=== PATIENT | female | born 1955 | race African-American/Black ===

== ENCOUNTER 2018-06-18 17:44 | Emergency (ER) | payer BC, MEDICARE, OTHER ==
[~2018-06-18] VITALS: Ht 165.1 cm; Wt 81.8 kg
[2018-06-18] MEDS ORDERED: HYDRALAZINE 20MG/ML VIAL IV ONE (18:45)
[2018-06-18] MEDS ORDERED: KETOROLAC 30MG/ML VIAL IV ONE (18:45)
[2018-06-18 18:56] LABS: BASOPHILS % 0.8 % (0.0-2.0); HEMOGLOBIN. 12.7 g/dL (12.0-16.0); LYMPHOCYTES % 40.3 % (20.0-50.0); MEAN CORPUSCULAR HEMOGLOBIN 31.5 pg (28.0-32.0); MEAN CORPUSCULAR VOLUME 94.2 fL (81.0-99.0); MEAN PLATELET VOLUME 11.1 fl (7.4-10.4); MONOCYTES % 6.3 % (2.0-8.0); NEUTROPHILS % 52.6 % (40.0-76.0); PLATELET 158 x1000/uL (130-400); RED BLOOD CELL COUNT 4.04 mill/uL (4.2-5.4); RED CELL DISTRIBUTION WIDTH 14.1 % (11.6-14.6)
[2018-06-18 19:04] LABS: CHLORIDE 106 mEq/L (98-107)
[2018-06-18 19:09] LABS: D-DIMER 0.32 mg/L FEU (<0.50); PARTIAL THROMBOPLASTIN TIME 26.1 sec (23.4-31.0)
[2018-06-18] MEDS ORDERED: DEXTROSE 50% WATER 50ML SYRINGE IV ONE (19:15)
[2018-06-18] MEDS ORDERED: DIAZEPAM 5 MG/ML 2ML CPJ IV ONE (19:45)
[2018-06-18] MEDS ORDERED: ASPIRIN 325MG EC TABLET PO ONE (19:45)
[2018-06-18] MEDS ORDERED: LORAZEPAM 2MG/ML CPJ IV ONE (20:30)
[2018-06-18] MEDS ORDERED: GUAIFENESIN 200MG/10ML SUGAR FREE UDC PO PRN (21:00)
[2018-06-18] MEDS ORDERED: ONDANSETRON HCL 4MG/2ML INJ IV PRN (21:00)
[2018-06-18] MEDS ORDERED: LORAZEPAM 0.5MG TABLET PO PRN (21:00)
[2018-06-18] MEDS ORDERED: IPRATROPIUM/ALBUTEROL 0.5-3(2.5)MG/3ML NEB INH PRN (21:00)
[2018-06-18] MEDS ORDERED: ACETAMINOPHEN 325MG TABLET PO PRN (21:00)
[2018-06-18] MEDS ORDERED: FAMOTIDINE 20MG TABLET PO SCH (21:00)
[2018-06-18] MEDS ORDERED: CLONIDINE 0.1MG TABLET PO ONE (21:00)
[2018-06-18] MEDS ORDERED: METOPROLOL TARTRATE 25MG TABLET PO SCH (21:00)
[2018-06-18] MEDS ORDERED: DOCUSATE SODIUM 100MG CAPSULE PO PRN (21:00)
[2018-06-18] MEDS ORDERED: NITROGLYCERIN 0.4MG TABLET SL SL PRN (21:00)
[2018-06-18] MEDS ORDERED: KETOROLAC 15MG/ML VIAL IV PRN (21:00)
[2018-06-18] MEDS ORDERED: NA PHOS,M-B/NA PHOS,DI-BA ENEMA 118ML PR PRN (21:00)
[2018-06-18] MEDS ORDERED: ENOXAPARIN 40MG/0.4ML SYR SUBCUT SCH (21:00)
[2018-06-18] MEDS ORDERED: ZOLPIDEM TARTRATE 5MG TABLET PO PRN (21:00)
[2018-06-18] MEDS ORDERED: CLONIDINE 0.1MG TABLET PO PRN (21:00)
[2018-06-18] MEDS ORDERED: LISINOPRIL 20MG TABLET PO SCH (21:00)
[2018-06-18] MEDS ORDERED: MAGNESIUM/ALUMINUM HYDROXIDE/SIMETHICONE 30ML UDC PO PRN (21:00)
[2018-06-18 21:23] LABS: C REACTIVE PROTEIN QUANT 0.3 mg/L (0.0-3.0)
[2018-06-18 21:28] LABS: T4 FREE 0.73 ng/dL (0.76-1.46)
[2018-06-18] MEDS ORDERED: ACETAMINOPHEN 325MG TABLET PO ONE (21:30)
[2018-06-18 22:05] VITALS: BP 170/75
[2018-06-19] MEDS ORDERED: ASPIRIN 325MG EC TABLET PO SCH (09:00)
== END 2018-06-18 22:05 | disposition left against medical advice (07) ==
LOC: ER 17:44 → CANBEDREQ 06-19 16:22
DX: R20.0 Anesthesia of skin (principal); E16.2 Hypoglycemia, unspecified; I10 Essential (primary) hypertension; R51 Headache; R07.89 Other chest pain; E05.90 Thyrotoxicosis, unspecified without thyrotoxic crisis or storm; M32.9 Systemic lupus erythematosus, unspecified; Z88.5 Allergy status to narcotic agent; Z88.0 Allergy status to penicillin; Z90.710 Acquired absence of both cervix and uterus; Z98.890 Other specified postprocedural states
CPT/HCPCS: 36415; 70450; 71045; 80053; 80061; 82962; 83036; 83880; 84439; 84443; 84484; 85025; 85379; 85610; 85651; 85730; 86140; 86850; 86900; 86901; 93005; 96374; 96375; 99291; J0360; J1885; J2060